=== PATIENT | female | born 1965 | race Caucasian/White ===

== ENCOUNTER 2019-01-14 15:35 | Inpatient (IN) | payer BC, OTHER ==
[~2019-01-14] VITALS: Ht 162.6 cm; Wt 45.4 kg
[~2019-01-14 15:35] MED LIST: BUPROPION XL300 MG PO
[2019-01-14] MEDS ORDERED: Omnipaque-300 100ml vial INJ PRN (16:00)
[2019-01-14] MEDS ORDERED: D5NS 1,000 ML IV ONE (16:00)
[2019-01-14] MEDS ORDERED: Acetaminophen 500mg (ES) tab ORAL ONE (16:00)
[2019-01-14] MEDS ORDERED: Ketorolac 30mg Inj IV ONE ×2 (16:00→22:30)
--- NOTE | 2019-01-14 16:00 | NUR ---
ED Nurse Note: Pt walked into ED from home with boyfriend. Pt states has L ab pain radiating to L back. Pt denies numbness and tingling. Pt states "its hard to pee."
--- NOTE | 2019-01-14 16:05 | Emergency Room Report ---
History of Present Illness General Chief Complaint: Female Urogenital Problems Source: Patient, Medical Record Present Illness HPI 53-year-old female history of surgical sling for urinary incontinence 12/27/2018 , presents with left lower quadrant pain that started 1 day ago, gradual in onset no aggravating leaving factors symptoms have been constant No increased frequency deep ache no fevers no chills no dysuria she does have increased hesitancy no diarrhea, patient presents for evaluation Allergies: Coded Allergies: SULFUR DIOXIDE (Verified Allergy, Severe, Rash, 08/11/12) Patient History Past Medical History: see triage record Reviewed Nursing Documentation: PMH: Agreed; PSxH: Agreed Nursing Documentation-PMH Past Medical History: No History, Except For Hx Cardiac Problems: No - urethral sling surgery on 12/27/2018 Review of Systems All Other Systems: negative except mentioned in HPI Physical Exam Vital Signs Date Time Temp Pulse Resp B/P (MAP) Pulse Ox O2 Delivery O2 Flow Rate FiO2 01/14/19 15:41 97.7 66 18 163/95 (117) 98 Room Air Sp02 EP Interpretation: reviewed, normal General Appearance: well appearing, no apparent distress, alert Head: normocephalic, atraumatic Eyes: bilateral eye PERRL, bilateral eye EOMI ENT: uvula midline, moist mucus membranes Neck: supple, thyroid normal, supple/symm/no masses Respiratory: lungs clear, no respiratory distress, no retraction, no accessory muscle use Cardiovascular #1: normal peripheral pulses, regular rate, rhythm, no edema, no gallop, no murmur Gastrointestinal: non tender, no guarding, no rebound, tenderness - Left lower quadrant pain no rebound no guarding Musculoskeletal: normal inspection Neurologic: alert, oriented x3 Psychiatric: mood/affect normal Skin: no rash, warm/dry Medical Decision Making Diagnostic Impression: Primary Impression: Nephrolithiasis Additional Impression: UTI (urinary tract infection) Qualified Codes: N30.01 - Acute cystitis with hematuria ER Course 53-year-old female presents with left ankle pain differential diagnosis includes UTI, pyelonephritis, nephrolithiasis Patient presents with left flank pain found to have a urinary tract infection as well as a 4 mm kidney stone just prior to the UVJ We will start antibiotics, patient will require admission Ceftriaxone started, pain was well-controlled with morphine Patient admitted to Dr. Almonte Laboratory Tests Test 01/14/19 16:08 01/14/19 17:10 White Blood Count 6.1 K/UL (4.8-10.8) Red Blood Count 4.61 M/UL (4.20-5.40) Hemoglobin 14.4 G/DL (12.0-16.0) Hematocrit 41.6 % (37.0-47.0) Mean Corpuscular Volume 90 FL (80-99) Mean Corpuscular Hemoglobin 31.3 PG (27.0-31.0) H Mean Corpuscular Hemoglobin Concent 34.7 G/DL (32.0-36.0) Red Cell Distribution Width 10.2 % (11.6-14.8) L Platelet Count 214 K/UL (150-450) Mean Platelet Volume 9.8 FL (6.5-10.1) Neutrophils (%) (Auto) 61.0 % (45.0-75.0) Lymphocytes (%) (Auto) 29.0 % (20.0-45.0) Monocytes (%) (Auto) 6.9 % (1.0-10.0) Eosinophils (%) (Auto) 1.9 % (0.0-3.0) Basophils (%) (Auto) 1.3 % (0.0-2.0) Sodium Level 139 MMOL/L (136-145) Potassium Level 3.9 MMOL/L (3.5-5.1) Chloride Level 104 MMOL/L (98-107) Carbon Dioxide Level 31 MMOL/L (21-32) Anion Gap 4 mmol/L (5-15) L Blood Urea Nitrogen 15 mg/dL (7-18) Creatinine 0.9 MG/DL (0.55-1.30) Estimate Glomerular Filtration Rate > 60 mL/min (>60) Glucose Level 103 MG/DL (74-106) Calcium Level 9.0 MG/DL (8.5-10.1) Total Bilirubin 0.2 MG/DL (0.2-1.0) Aspartate Amino Transferase (AST) 16 U/L (15-37) Alanine Aminotransferase (ALT) 19 U/L (12-78) Alkaline Phosphatase 71 U/L (46-116) Total Protein 7.3 G/DL (6.4-8.2) Albumin 3.7 G/DL (3.4-5.0) Globulin 3.6 g/dL Albumin/Globulin Ratio 1.0 (1.0-2.7) Lipase 143 U/L (73-393) Urine Color Red Urine Appearance Cloudy Urine pH 5 (4.5-8.0) Urine Specific [place] 1.020 (1.005-1.035) Urine Protein 3+ (NEGATIVE) H Urine Glucose (UA) 4+ (NEGATIVE) H Urine Ketones 1+ (NEGATIVE) H Urine Blood 5+ (NEGATIVE) H Urine Nitrite Positive (NEGATIVE) H Urine Bilirubin Negative (NEGATIVE) Urine Urobilinogen Normal MG/DL (0.0-1.0) Urine Leukocyte Esterase 2+ (NEGATIVE) H Urine RBC Tntc /HPF (0 - 2) H Urine WBC 5-10 /HPF (0 - 2) H Urine Squamous Epithelial Cells Few /LPF (NONE/OCC) Urine Bacteria Few /HPF (NONE) Urine Mucus Few /LPF (NONE/OCC) H CT/MRI/US Diagnostic Results CT/MRI/US Diagnostic Results : Impression Patient : ANTHONY HOFFMAN Referring Physician: Lebron Angel MD ID Number: [id number] Service Date: 01/14/19 : 1965 Report Date: 01/14/19 Gender: F Accession No.: [id number] Location: [facility] Procedure: CT Abdomen Pelvis w/Contrast CT ABDOMEN + PELVIS With Contrast: Bilateral breast implants partially visualized. Mild periportal edema which may be related to fluid resuscitation. Stomach is distended with ingested material. Normal appendix. No bowel obstruction. 4 mm stone in the distal left ureter near the left UVJ. Mild left hydroureteronephrosis. No hydronephrosis or obstructing stone on the right. Small hypodensities in the right kidney are too small to definitively characterize. Mild prominence of the bladder wall is nonspecific. Please correlate with urinalysis if concerned for cystitis. Retroverted uterus. Dictated By: Alicja Vincent MD Electronically Signed By: Signed Date/Time CC: Last Vital Signs Date Time Temp Pulse Resp B/P (MAP) Pulse Ox O2 Delivery O2 Flow Rate FiO2 01/14/19 15:41 97.7 66 18 163/95 (117) 98 Room Air Disposition: ADMITTED INPATIENT Condition: Stable Lebron Angel MD Jan 14, 2019 16:05
[2019-01-14 16:27] LABS: BASOPHILS % (AUTO) 1.3 % (0.0-2.0); EOSINOPHILS % (AUTO) 1.9 % (0.0-3.0); HEMATOCRIT 41.6 % (37.0-47.0); HEMOGLOBIN 14.4 G/DL (12.0-16.0); MEAN CORPUSCULAR VOLUME 90 FL (80-99); MONOCYTES % (AUTO) 6.9 % (1.0-10.0); PLATELET COUNT 214 K/UL (150-450); RED BLOOD COUNT 4.61 M/UL (4.20-5.40); RED CELL DISTRIBUTION WIDTH 10.2 % (11.6-14.8); WHITE BLOOD COUNT 6.1 K/UL (4.8-10.8)
[2019-01-14] MEDS ORDERED: Morphine Sulfate 4mg/ml Inj (IV USE ONLY) ONE (16:36)
[2019-01-14 16:40] VITALS: BP 113/67
[2019-01-14 16:41] LABS: ANION GAP 4 mmol/L (5-15); BLOOD UREA NITROGEN 15 mg/dL (7-18); CARBON DIOXIDE 31 MMOL/L (21-32); CHLORIDE 104 MMOL/L (98-107); CREATININE 0.9 MG/DL (0.55-1.30); POTASSIUM 3.9 MMOL/L (3.5-5.1); SODIUM 139 MMOL/L (136-145)
[2019-01-14] MEDS ORDERED: Morphine Sulfate 4mg/ml Inj (IV USE ONLY) IVP ONE (16:45)
[2019-01-14 16:47] LABS: ALANINE AMINOTRANSFERASE 19 U/L (12-78); ALBUMIN 3.7 G/DL (3.4-5.0); ALKALINE PHOSPHATASE 71 U/L (46-116); ASPARTATE AMINO TRANSFERASE 16 U/L (15-37); BILIRUBIN,TOTAL 0.2 MG/DL (0.2-1.0)
[2019-01-14 17:45] LABS: APPEARANCE,URINE CLOUDY; BILIRUBIN, URINE NEGATIVE (NEGATIVE); GLUCOSE, URINE (UA) 4+ (NEGATIVE); KETONES,URINE 1+ (NEGATIVE); LEUKOCYTE ESTERASE ,URINE 2+ (NEGATIVE); NITRITE,URINE POSITIVE (NEGATIVE); PH,URINE 5 (4.5-8.0); PROTEIN,URINE 3+ (NEGATIVE); UROBILINOGEN,URINE NORMAL MG/DL (0.0-1.0)
[2019-01-14 17:51] LABS: COLOR,URINE RED
--- NOTE | 2019-01-14 17:58 | Diagnostic Imaging Report ---
Clinical Indication: Abdominal pain Technique: No oral contrast utilized, per emergency room physician request IV administration nonionic contrast. Venous phase spiral acquisition obtained through the abdomen and pelvis. Multiplanar reconstructions were generated. Total dose length product 440 mGycm. CTDIvol(s) 8 mGy. Dose reduction achieved using automated exposure control Comparison: none Findings: There is a 4 mm calculus at the left distal ureteral orifice. This results in mild left hydronephrosis and hydroureter. No significant perinephric fat stranding. No intrarenal calculi are demonstrated. No right renal or ureteral calculi, right hydronephrosis or hydroureter. There is slight delay in renal opacification on the left as a result. The bladder is unremarkable. No focal renal abnormality. The cecum is distended with stool. The appendix is normal. No evidence of diverticulosis or diverticulitis. No small bowel distention. No free or loculated intraperitoneal gas or fluid is evident. The distal esophagus, stomach, duodenum are unremarkable. There is mild periportal edema. Liver is otherwise unremarkable. The gallbladder, bile ducts, pancreas, spleen, adrenals are unremarkable. The uterus is retroverted. No adnexal mass. The included lung bases are clear. The bones are unremarkable. There are bilateral breast implants Impression: 4 mm distal left ureteral calculus, resulting in mild hydronephrosis and hydroureter Mild periportal edema, nonspecific Bilateral breast implants This agrees with the preliminary interpretation provided overnight by [facility] teleradiology service. The CT scanner at [facility] is accredited by the [employer] and the scans are performed using protocols designed to limit radiation exposure to as low as reasonably achievable to attain images of sufficient resolution adequate for diagnostic evaluation.
[2019-01-14] MEDS ORDERED: cefTRIAXone 1 GM in NS 55 ML IVPB ONE (18:00)
[2019-01-14] MEDS ORDERED: VALACYCLOVIR500 MG ORAL (18:54)
[2019-01-14] MEDS ORDERED: PREMPRO 0.45-11 EACH PO (18:54)
--- NOTE | 2019-01-14 19:00 | NUR ---
ED Nurse Note: Patient resting comfortably, has no complaints of pain at this time, will continue to monitor.
--- NOTE | 2019-01-14 20:00 | NUR ---
ED Nurse Note: Patient able to ambulate with steady gait to restroom. Patient provided with urine strainer to monitor passing of stone. Will conntinue to monitor.
--- NOTE | 2019-01-14 20:56 | NUR ---
ED Nurse Note: Report called in to Amee WHYTE. Belongings sheet verified, patient awaiting packet prior to transport by consulting technical director.
[2019-01-14 21:18] VITALS: BP 113/67
--- NOTE | 2019-01-14 21:18 | NUR ---
ED Nurse Note: Patient transported to floor by automotive paint technician.
--- NOTE | 2019-01-14 22:45 | NUR ---
NURSE NOTES: Patient refused to get the IV toradol that Dr. Nielson ordered. Explained the risks and benefits. Patient verbalized understanding.
--- NOTE | 2019-01-14 22:58 | NUR ---
NURSE NOTES: Admitted a 53 year old female, alert and oriented x4, ambulatory - steady. No complaint of pain since she came in the room from ED. Obtained orders from Dr. Almonte. Patient seen by Dr. Nielson and cleared patient from his standpoint and made Dr. Almonte aware but he wants to see patient tomorrow. Explained to the patient but patient refused to stay and wanted to go home. Patient signed AMA form. Charge nurse and loss prevention supervisor made aware.
--- NOTE | 2019-01-14 23:30 | Consultation ---
DATE OF CONSULTATION: 01/14/2019 UROLOGY CONSULTATION CONSULTING PHYSICIAN: Fran Nielson M.D. ATTENDING/REFERRING PHYSICIAN: Mirian Almonte M.D. CHIEF COMPLAINT/HISTORY OF PRESENT ILLNESS: I was asked by Dr. Almonte to evaluate this very pleasant 53-year-old female regarding history of a left distal ureteral stone with hydronephrosis and colic secondary to same. Briefly, the patient has a history of stress urinary incontinence. On 12/27/2018, she underwent a urethral sling for the same with Dr. Rm Caceres. This operation was apparently performed without complications. Yesterday however, the patient began having left-sided back and abdominal pain. This was associated later with urinary urgency and frequency. Eventually, the pain got so bad. She presented here. Workup has revealed a 4 mm distal left ureteral stone with hydronephrosis secondary to same. The patient was given some morphine and antibiotics as she was also found to have an evidence of urinary infection. The pain has completely subsided and the patient is feeling better. Given above however, I was asked to evaluate the patient. PAST MEDICAL HISTORY: Stress urinary incontinence. PAST SURGICAL HISTORY: Urethral sling for the same. MEDICATIONS: Please see the chart for current medications administration details. Briefly, the patient is on Rocephin for antibiotic coverage. ALLERGIES: Include sulfa drugs. SOCIAL HISTORY: Unremarkable for tobacco, alcohol, or drug use. FAMILY HISTORY: Noncontributory. REVIEW OF SYSTEMS: A 14-system review of systems was unremarkable outside of what was described above. PHYSICAL EXAMINATION: GENERAL: The patient is a middle-aged female, awake, alert, oriented x4, pleasant. No obvious distress. HEENT: NC/AT. EOMI. Oropharynx clear. NECK: Supple. Full range of motion. CHEST: Within normal limits. ABDOMEN: Soft, nontender, nondistended. EXTREMITIES: Warm, well perfused. No cyanosis, clubbing, or edema. BACK: No CVA tenderness to percussion. NEUROLOGIC: Nonfocal. LABORATORY DATA: White blood cell count 6.1, hematocrit 41.6, platelets 214. Sodium 139, potassium 3.9, chloride 104, bicarbonate 31, BUN 15, creatinine 0.9, glucose 103, calcium 9.0. LFTs within normal limits. Urinalysis, specific gravity 1.020, pH 5.0. Dip test notable for 3+ protein, 4+ glucose, 1+ ketones, 5+ occult blood, positive nitrites, 2+ leukocyte esterase. Microanalysis with 5 to 10 white and too numerous to count red blood cells per high-power field and few bacteria seen. DIAGNOSTIC IMAGING: CT scan of the abdomen and pelvis reveals a 4 mm stone in the distal left ureter near the left UPJ. There was mild left hydroureteronephrosis secondary to the same. There is no hydronephrosis or obstructing stone on the right. ASSESSMENT AND PLAN: In summary, the patient is a 53-year-old female with a history of left-sided abdominal flank pain. Workup for the same has revealed evidence of urinary tract infection and a 4 mm distal left ureteral stone with mild hydronephrosis. Physical exam is now unremarkable with no CVA tenderness after a dose of morphine. Laboratory data is notable for evidence of urinary tract infection, but the patient has a normal white blood cell count, electrolytes, and creatinine level. Diagnostic imaging reveals a small stone described above. It appears that this patient's pain is improved. She may have passed a stone into her bladder. There is no current pain or toxicity and she has received Rocephin for her infection. I have discussed this at length with the patient. She is eager to go home and follow up as an outpatient with her regular urologist regarding the same. The options of ureteroscopy with laser lithotripsy versus conservative management with active surveillance and expecting passage of the stone were discussed with the patient who wishes to proceed with the latter. I have written her prescription for ciprofloxacin to be taken for the next 4 days for her presumed urinary tract infection. If she is cleared by Dr. Almonte, I think it is otherwise okay to send her home and have her follow up as an outpatient. The patient understands she needs followup imaging as an outpatient to ensure passage of stone and that of the stone to pass even in the absence of any symptoms could cause long-term issues with her kidney function on that side. Thank you for allowing me to participate in the care of this nice lady. Please do not hesitate to contact me for any questions that you may further have regarding her care. I will see her with you as needed. Fran Nielson M.D. DR: JAME JOB#: [id number] CC:
--- NOTE | 2019-01-15 09:59 | Discharge Summary ---
Discharge Summary Discharge Summary _ DATE OF ADMISSION: 01/14/2019 DATE OF DISCHARGE: 12/27/2018 Patient left AGAINST MEDICAL ADVICE REASON FOR ADMISSION: 53 years old female with past medical history of urinary incontinence , status post surgical sling on 12/27 , presented with left lower quadrant pain for 1 day. Patient reported urinary hesitancy Patient denied fever and chills . Patient denied dysuria . Patient denied urinary frequency. No diarrhea. Upon evaluation vital signs were stable . Laboratory work-up revealed no leukocytosis, stable hemoglobin and hematocrit , stable electrolytes, renal parameters and LFT. Urinalysis revealed pyuria , +2 leukocyte esterase and few bacteria. CT of the abdomen and pelvis demonstrated 4 mm distal left ureteral calculus, resulting in mild hydronephrosis and hydroureter. Mild periportal edema, nonspecific. Bilateral breast implants. Patient started on empiric antibiotics , provided with analgesia and admitted to medical surgical floor for further management. CONSULTANTS: urologist Dr. Nielson [facility] COURSE: Patient admitted to medical surgical floor. Patient started on the IV fluids and empiric antibiotic. Pain management was addressed. Urology consult was requested. Urologist closely reviewed CT scan of the abdomen and pelvis and noted mild left hydronephrosis secondary to 4 mm stone in the distal left ureter near the left UPJ. No hydronephrosis or obstructive stone on the right. Physical exam was unremarkable. No CVA tenderness after morphine. Stable renal parameters. Patient apparently passed the stone into the bladder since her pain improved. Patient was eager to go home and follow-up as outpatient with her regular urologist. The option of ureteroscopy with laser lithotripsy versus conservative management with active surveillance and expectant passage of the stone were discussed with patient , who wishes to proceed with conservative management. Patient understood that she will need to follow-up imaging as an outpatient to ensure passage of the stone , which she can do with her outpatient urologist. Urologist cleared for discharge. Patient declined to stay to the hospital waiting for attending physician to see her and cleared for discharge. Patient decided to leave AGAINST MEDICAL ADVICE. The risks and consequences of signing AGAINST MEDICAL ADVICE were discussed with patient in detail. Patient verbalized understanding, nevertheless signed AMA form and left. FINAL DIAGNOSES: Nephrolithiasis UTI Mild left hydronephrosis I have been assigned to dictate discharge summary for this account. I was not involved in the patient's management. Betty Rowe NP Jan 15, 2019 09:59
--- NOTE | 2019-01-16 01:00 | History and Physical Report ---
DATE OF ADMISSION: 01/14/2019 HISTORY OF PRESENT ILLNESS: The patient left AMA without waiting to be seen by me. The patient initially came in with left flank pain, positive UTI, and 4 mm kidney stone. Admitted to Med/Surg. Dr. Nielson saw the patient the patient did not want to wait to be seen by me, and she left against medical advice. So, I cannot finish the history and physical because the patient left on the same day she was admitted a couple of hours later and did not wait for me to be seen. So, I cannot History and Physical for this admission since the patient went AMA. Mirian Almonte M.D. DR: MINAL JOB#: [id number] CC:
== END 2019-01-14 22:52 | disposition left against medical advice (07) | DRG 694 ==
LOC: EMR 16:11 → 4E 18:54 → EDBEDREQ 20:52
DX: N13.2 Hydronephrosis with renal and ureteral calculous obstruction (principal); N39.0 Urinary tract infection, site not specified; Z88.2 Allergy status to sulfonamides
CPT/HCPCS: 36415; 74177; 80053; 81003; 83690; 85025; 93005; 96361; 96365; 96375; 99285; J2405